=== PATIENT | female | born 1975 | race Caucasian/White ===

== ENCOUNTER → 2016-12-26 | Outpatient (REF) ==
[~2016-12-26] MED LIST: PRENATAL MVI
== END ==
LOC: WSOH 10:30
DX: Z02.89 Encounter for other administrative examinations (principal)

== ENCOUNTER → 2017-02-17 | Outpatient (REF) | LOC: WSOH 13:06 | DX: Z02.89 Encounter for other administrative examinations (principal) ==

== ENCOUNTER → 2018-03-04 | Outpatient (CLI) | payer BC | LOC: MC.RAD 09:08 | DX: Z12.31 Encounter for screening mammogram for malignant neoplasm of breast (principal) ==

== ENCOUNTER → 2018-08-11 | Outpatient (CLI) | payer OTHER ==
[2018-08-11 14:47] LABS: THYROXINE (T4)-TOTAL 8.9 ug/dL (5.5-11.0)
[2018-08-11 15:00] LABS: THYROID STIMULATING HORMONE 1.93 uIU/mL (0.465-4.680)
[2018-08-11 23:14] LABS: T3 FREE (TRI-IODOTHYRONINE) 2.5 pg/mL (1.7-3.7)
== END ==
LOC: COL.LAB 13:15
PROVIDERS: Emergency Medicine
DX: E03.9 Hypothyroidism, unspecified (principal)